=== PATIENT | male | born 1975 | race Caucasian/White ===

== ENCOUNTER → 2024-06-14 | Outpatient (CLI) | payer BC ==
[2024-06-14 10:23] LABS: Basophils # (A) 0.06 X 10*3/uL (0.00-0.10); Basophils % (A) 1.2 %; Eosinophils # (A) 0.17 X 10*3/uL (0.04-0.35); Eosinophils % (A) 3.4 %; HCT 42.2 % (39.6-50.0); HGB 14.1 g/dL (13.0-17.0); Lymphocytes # (A) 2.17 X 10*3/uL (0.90-5.00); Lymphocytes % (A) 43.4 %; MCHC 33.4 g/dL (32.0-37.0); MCV 89.8 FL (80.0-97.0); Monocytes # (A) 0.43 X 10*3/uL (0.20-1.00); Monocytes % (A) 8.6 %; NRBC Per 100 WBC 0 X 10*3/uL (0.00-0.01); Neutrophils # (A) 2.16 X 10*3/uL (1.80-7.70); Neutrophils % (A) 43.2 %; Platelet Count 341 X 10*3/uL (140-440); RDW 12.1 % (11.5-14.5)
[2024-06-14 10:51] LABS: ALT 18 U/L (10-49); AST 17 U/L (14-35)
[2024-06-14 11:03] LABS: Hepatitis B Core IgM Nonreactive (Nonreactive); Hepatitis C IgG Antibody Nonreactive (Nonreactive)
[2024-06-14 12:26] LABS: Hepatitis B Surface AB- Quant 3.5 mIU/mL
== END | disposition home or self-care (01) ==
LOC: LABWHC1 07:20
PROVIDERS: ATTEND Internal Medicine
DX: L40.0 Psoriasis vulgaris (principal); Z79.899 Other long term (current) drug therapy
CPT/HCPCS: 36415; 82565; 84450; 84460; 85025; 86480; 86705; 86706; 86803; 87350